=== PATIENT | male | born 1955 | race Caucasian/White ===

== ENCOUNTER 2018-04-11 08:46 | Day surgery (SDC) | payer MEDICARE, OTHER ==
[~2018-04-11 08:46] MED LIST: CYCLOPENTOLATE 1% OPHTH DROPS 2 ML ONE; KETOROLAC 0.45% OPHTH DROPS ONE; PHENYLEPHRINE 2.5% OPHTH 2 ML DROPS ONE; PROPARACAINE 0.5% OPHTH DROPS 15 ML ONE
[2018-04-11] MEDS ORDERED: LACTATED RINGERS 500 ML IV ONE (09:05)
[2018-04-11] MEDS ORDERED: CYCLOPENTOLATE 1% OPHTH DROPS 2 ML RIGHTEYE ONE (09:20)
[2018-04-11] MEDS ORDERED: KETOROLAC 0.45% OPHTH DROPS RIGHTEYE ONE (09:20)
[2018-04-11] MEDS ORDERED: PHENYLEPHRINE 2.5% OPHTH 2 ML DROPS RIGHTEYE ONE (09:20)
[2018-04-11] MEDS ORDERED: PROPARACAINE 0.5% OPHTH DROPS 15 ML RIGHTEYE ONE ×2 (09:20→10:18)
[2018-04-11] MEDS ORDERED: DEXMEDETOMIDINE 400 MCG/100 ML 100 ML IV ONE (09:22)
--- NOTE | 2018-04-11 09:25 | ANESTHESIA ---
Pre-Anesthesia VS, & Labs - Diagnosis Right senile combined cataract - Procedure Right phaco with IOL implant Vital Signs: Temp Pulse Resp BP Pulse Ox 36 C L 64 18 138/93 H 98 04/11/18 09:10 04/11/18 09:10 04/11/18 09:10 04/11/18 09:10 04/11/18 09:10 Height 6 ft 4.5 in Weight (kg) 120 kg Home Medications and Allergies Home Medications: Ambulatory Orders Alprazolam [Xanax] 1 mg PO DAILY 04/10/18 Aspirin [Adult Aspirin] 81 mg PO DAILY 04/10/18 Gabapentin [Neurontin] 300 mg PO TID 04/10/18 Levothyroxine Sodium [Synthroid] 40 mcg PO DAILY 04/10/18 Propranolol [Inderal] 10 mg PO TID 04/10/18 hydroCHLOROthiazide [Hydrochlorothiazide] 25 mg PO DAILY 04/10/18 Alprazolam [Xanax] 1 mg PO DAILY 04/10/18 Aspirin [Adult Aspirin] 81 mg PO DAILY 04/10/18 Gabapentin [Neurontin] 300 mg PO TID 04/10/18 Levothyroxine Sodium [Synthroid] 40 mcg PO DAILY 04/10/18 Propranolol [Inderal] 10 mg PO TID 04/10/18 hydroCHLOROthiazide [Hydrochlorothiazide] 25 mg PO DAILY 04/10/18 Allergies/Adverse Reactions: Allergies Allergy/AdvReac Type Severity Reaction Status Date / Time erythromycin base Allergy Edema Verified 04/11/18 09:42 Anes History & Medical History - Anesthetic History Anesthesia Complications: reports: No previous complications Family history of Anesthesia Complications: Denies Family history of Malignant Hyperthermia: Denies - Medical History Cardiovascular: reports: Hypertension, Atrial fibrillation Pulmonary: reports: None Gastrointestinal: reports: GERD Urinary: reports: None Neuro: reports: None Musculoskeletal: reports: Osteoarthritis Endocrine/Autoimmune: reports: Type 2 diabetes, HyPOthyroidism Blood Disorders: reports: Anemia Skin: reports: None Smoking Status: Former smoker Psychosocial: reports: Other (PTSD) - Surgical History General: Cholecystectomy Orthopedic: Arthroscopic surgery Dermatologic: Skin cancer surgery Exam General: Alert Dental: WNL Mouth Opening: Greater than 4 Fingerbreadths Neck Mobility: Normal Mallampati classification: I Thyromental Distance: greater than 6 cm Respiratory: Lungs clear Cardiovascular: Other (irregular) Neurological: Normal speech Mental/Cognitive Status: Alert/Oriented X3 Cognitive Status: Within normal limits Plan Anesthesia Type: Total IV Consent for Procedure(s) Verified and Reviewed: Yes Code Status: Attempt Resuscitation ASA classification: 2-Mild systemic disease Is this case an emergency?: No
[2018-04-11] MEDS ORDERED: BRIMONIDINE 0.2% OPHTH DROPS 5 ML OPTH ONE (10:17)
[2018-04-11] MEDS ORDERED: CHONDR SULF/HYALURONATE SYRINGE IO ONE (10:17)
[2018-04-11] MEDS ORDERED: TIMOLOL 0.5% OPHTH DROPS OPTH ONE (10:17)
[2018-04-11] MEDS ORDERED: EPINEPHrine 1 MG/ML AMP IVP ONE (10:17)
[2018-04-11] MEDS ORDERED: VANCOMYCIN OPHTHALMI 8MG/0.8ML 8 MG/0.8 ML SYRINGE IO ONE ×2 (10:18)
[2018-04-11] MEDS ORDERED: BSS/LIDOCAINE/EPINEPHRINE 1 ML SYRINGE IO ONE ×2 (10:18)
[2018-04-11] MEDS ORDERED: TRIAMCIN/MOXIFLOX OPHTHALMIC 0.6 ML VIAL IO ONE ×2 (10:19)
[2018-04-11] MEDS ORDERED: fentaNYL 100 MCG/2 ML VIAL IVP ONE (10:26)
[2018-04-11] MEDS ORDERED: PROPOFOL 200 MG/20 ML VIAL IVP ONE (10:26)
[2018-04-11 11:06] VITALS: BP 120/60
--- NOTE | 2018-04-11 13:13 | OPERATIVE REPORT ---
DATE OF SERVICE: 04/11/2018 Physician: Giancarlo Erwin MD PREOPERATIVE DIAGNOSIS: Visually significant cataract, right eye. This was his first cataract surgery. POSTOPERATIVE DIAGNOSIS: Visually significant cataract, right eye. This was his first cataract surgery. NAME OF PROCEDURE: Phacoemulsification of the posterior chamber intraocular lens, implant, right eye. SURGEON: Dr. Giancarlo Erwin ANESTHESIA: General anesthesia with LMA. COMPLICATIONS: None. OPERATIVE INDICATIONS: This is a 63-year-old man with progressive vision loss in the right eye due to 2+ nuclear sclerotic and 2+ cortical cataract. Best corrected visual acuity was 20/25, with glare to 20/60 in the right eye. Indications for surgery are overall decrease in vision, difficulty seeing words on the computer screen, difficulty reading, difficulty seeing words, closed caption or game scores on TV, difficulty seeing street signs, difficulty driving in low light or at night, difficulty driving at night because of headlights from other vehicles, and difficulty with glare or bright lights in any situation. He was consented at length concerning risks and benefits of cataract surgery, after which he expressed a desire to proceed with surgery. OPERATIVE PROCEDURE: The patient was taken into OR #3 and placed under general anesthesia. A surgical timeout was conducted confirming correct patient, correct procedure, and correct surgical site. He was prepped and draped in usual sterile fashion. The eye was entered at the 12 and 9-o'clock positions. Intracameral Shugarcaine was injected into the anterior chamber followed by Viscoat. A continuous-tear curvilinear capsulorrhexis was performed. The nucleus was hydrodissected and phacoemulsified. The cortex was evacuated using automated infusion and aspiration. Provisc was injected capsular bag and an 18.0-diopter intraocular lens was inserted into the bag. Approximately 0.7 mL mixture of triamcinolone, moxifloxacin, and vancomycin was injected subconjunctivally in the superior quadrant for infection and inflammation prophylaxis. I and A was used to evacuate the viscoelastic material. The eye was inflated to physiologic pressure using balanced salt solution and found to be watertight. Patient was extubated and taken from the operating room in good condition and given postoperative instructions. TD: 04/11/2018 10:33 [facility]
== END 2018-04-11 08:47 | disposition home or self-care (01) ==
LOC: SDS 08:46
PROVIDERS: ATTEND Ophthalmology
PROC: 08RJ3JZ Replacement of Right Lens with Synthetic Substitute, Percutaneous Approach (ICD-10-PCS; principal; 2018-04-11 10:00)
DX: H25.811 Combined forms of age-related cataract, right eye (principal); G47.33 Obstructive sleep apnea (adult) (pediatric); F43.10 Post-traumatic stress disorder, unspecified; I48.91 Unspecified atrial fibrillation; I10 Essential (primary) hypertension; E11.9 Type 2 diabetes mellitus without complications; Z87.891 Personal history of nicotine dependence
CPT/HCPCS: 66984; A9270; J3490; V2632

== ENCOUNTER 2018-10-12 17:23 | Emergency (ER) | payer MEDICARE, OTHER ==
[2018-10-12] MEDS ORDERED: METOPROLOL 5 MG/5 ML VIAL IVP STA (18:03)
[2018-10-12] MEDS ORDERED: ALPRAZolam 0.25 MG TABLET PO STA (18:03)
[2018-10-12 18:05] LABS: BASOPHILS # (AUTO) 0.1 10^3/uL (0.0-0.1); BASOPHILS % (AUTO) 1.2 %; EOSINOPHILS # (AUTO) 0.2 10^3/uL (0.0-0.7); EOSINOPHILS % (AUTO) 2.2 %; LYMPHOCYTES % (AUTO) 25.8 %; MEAN CORPUSCULAR HEMOGLOBIN 29.7 pg (27.0-31.0); MEAN CORPUSCULAR HGB CONC 34.1 g/dL (32.0-36.0); MEAN CORPUSCULAR VOLUME 87.2 fL (80.0-94.0); MEAN PLATELET VOLUME 7.5 fL (7.4-11.4); MONOCYTES # (AUTO) 0.6 10^3/uL (0.0-1.0); MONOCYTES % (AUTO) 7.2 %; NEUTROPHILS % (AUTO) 63.6 %; PLT - PLATELET COUNT 260 10^3/uL (130-450); RED BLOOD COUNT 5.04 10^6/uL (4.70-6.10); RED CELL DISTRIBUTION WIDTH 13.5 % (12.0-15.0); WHITE BLOOD COUNT 7.9 x10^3/uL (4.8-10.8)
--- NOTE | 2018-10-12 18:05 | XRAY Report ---
Reason: heart palpations Procedure Date: 10/12/2018 Accession Number: [id number] / [id number] Procedure: XR - Chest 1 View X-Ray CPT Code: 31880 FULL RESULT: EXAM: CHEST RADIOGRAPHY EXAM DATE: 10/12/2018 05:48 PM. CLINICAL HISTORY: Chest pain. Heart palpitations. COMPARISON: None. TECHNIQUE: 1 view. FINDINGS: Lungs/Pleura: No focal opacities evident. No pleural effusion. No pneumothorax. Mediastinum: Within exam limitations, the cardiomediastinal contour is normal. Other: None. IMPRESSION: Normal single view chest. RADIA
--- NOTE | 2018-10-12 18:06 | ED Physician Documentation ---
PD HPI CHEST PAIN - Stated complaint Stated Complaint: AFIB - Chief complaint Chief Complaint: Cardiac - History obtained from History obtained from: Patient, Family - History of Present Illness Timing - onset: Other (For the last several months he has had stomach upset after eating with right upper quadrant pain. It was worse today. Today its associated with anxiety and feeling like his A. alessandro is acting up with shortness of breath. He denies any weight loss. He has been having a lot of various health problems lately regarding his eyes and teeth and he is very anxious. He has a remote cholecystectomy.) Review of Systems Ten Systems: 10 systems reviewed and negative Constitutional: denies: Fever, Chills Nose: denies: Rhinorrhea / runny nose, Congestion Throat: reports: Dental pain / toothache Cardiac: reports: Palpitations. denies: Chest pain / pressure Respiratory: reports: Dyspnea. denies: Cough GI: reports: Abdominal Pain, Nausea. denies: Vomiting, Diarrhea PD PAST MEDICAL HISTORY - Past Medical History Cardiovascular: Hypertension, Atrial fibrillation Respiratory: None Neuro: None Endocrine/Autoimmune: Type 2 diabetes, HyPOthyroidism GI: GERD : None HEENT: None Psych: None Musculoskeletal: Osteoarthritis Derm: None - Past Surgical History General: Cholecystectomy Ortho: Arthroscopic surgery Derm: Skin cancer surgery - Present Medications Home Medications: Ambulatory Orders Medication Instructions Recorded Confirmed Alprazolam [Xanax] 1 mg PO DAILY 04/10/18 04/11/18 Aspirin [Adult Aspirin] 81 mg PO DAILY 04/10/18 04/11/18 Gabapentin [Neurontin] 300 mg PO TID 04/10/18 04/11/18 Propranolol [Inderal] 10 mg PO TID 04/10/18 04/11/18 hydroCHLOROthiazide 25 mg PO DAILY 04/10/18 04/11/18 [Hydrochlorothiazide] Alpha Lipoic Acid 50 mg PO 10/12/18 Cyclobenzaprine [Flexeril] 10 mg PO 10/12/18 Dexlansoprazole [Dexilant] 60 mg PO DAILY #90 10/12/18 Levothyroxine Sodium [Synthroid] 75 mcg 10/12/18 Metoprolol Succinate 25 mg PO DAILY #90 tab.er.24h 10/12/18 Simvastatin 40 mg 10/12/18 traZODone [Desyrel] 50 mg PO HS 10/12/18 10/12/18 - Allergies Allergies/Adverse Reactions: Allergies Allergy/AdvReac Type Severity Reaction Status Date / Time bacitracin Allergy Severe Edema Verified 04/11/18 09:43 erythromycin base Allergy Edema Verified 10/12/18 17:33 - Social History Smoking Status: Former smoker PD ED PE NORMAL - Vitals Vital signs reviewed: Yes - General General: Alert and oriented X 3, No acute distress - HEENT HEENT: PERRL, EOMI, Other (Bloodshot eyes) - Neck Neck: Supple, no meningeal sign, No bony TTP - Cardiac Cardiac: RRR, No murmur, Other (On the monitor he sometimes has rapid A. fib, sometimes in sinus rhythm.) - Respiratory Respiratory: No respiratory distress, Clear bilaterally - Abdomen Abdomen: Normal bowel sounds, Soft, Non tender - Back Back: No CVA TTP, No spinal TTP - Derm Derm: Normal color, Warm and dry - Extremities Extremities: No edema, No calf tenderness / cord - Neuro Neuro: Alert and oriented X 3, Normal speech Results - Vitals Vitals: Vital Signs - 24 hr 10/12/18 10/12/18 10/12/18 17:30 17:59 18:17 Temperature 36.8 C Heart Rate 79 142 H 75 Respiratory 22 20 16 Rate Blood Pressure 206/155 H 188/114 H 167/120 H O2 Saturation 99 100 99 10/12/18 10/12/18 10/12/18 18:20 18:24 18:34 Temperature Heart Rate 72 74 76 Respiratory 16 16 16 Rate Blood Pressure 161/115 H 134/88 H 132/75 H O2 Saturation 99 99 99 10/12/18 10/12/18 18:43 19:19 Temperature Heart Rate 69 69 Respiratory 16 16 Rate Blood Pressure 128/90 H 124/91 H O2 Saturation 100 99 Oxygen O2 Source Room air - EKG (time done) 1730 Rate: Rate (enter#) (74) Rhythm: NSR (with PAcs) [employer]: Normal Intervals: Other (LAFB) QRS: Normal Ischemia: Normal ST segments Computer interpretation: Agree with computer - Labs Labs: Laboratory Tests 10/12/18 10/12/18 10/12/18 17:57 17:57 17:57 WBC 7.9 RBC 5.04 Hgb 15.0 Hct 43.9 MCV 87.2 MCH 29.7 MCHC 34.1 RDW 13.5 Plt Count 260 MPV 7.5 Neut # (Auto) 5.0 Lymph # (Auto) 2.0 White # (Auto) 0.6 Eos # (Auto) 0.2 Baso # (Auto) 0.1 Absolute Nucleated RBC 0.00 Nucleated RBC % 0.0 Sodium 140 Potassium 4.4 Chloride 104 Carbon Dioxide 24 Anion Gap 12.0 BUN 18 Creatinine 1.1 Estimated GFR (MDRD) 67 L Glucose 102 H Calcium 9.7 Total Bilirubin 0.7 AST 23 ALT 20 Alkaline Phosphatase 57 Troponin I < 0.04 Total Protein 8.8 H Albumin 4.7 Globulin 4.1 Albumin/Globulin Ratio 1.1 Lipase 24 TSH Ethyl Alcohol 10/12/18 10/12/18 17:57 17:57 WBC RBC Hgb Hct MCV MCH MCHC RDW Plt Count MPV Neut # (Auto) Lymph # (Auto) White # (Auto) Eos # (Auto) Baso # (Auto) Absolute Nucleated RBC Nucleated RBC % Sodium Potassium Chloride Carbon Dioxide Anion Gap BUN Creatinine Estimated GFR (MDRD) Glucose Calcium Total Bilirubin AST ALT Alkaline Phosphatase Troponin I Total Protein Albumin Globulin Albumin/Globulin Ratio Lipase TSH 4.47 Ethyl Alcohol < 5.0 - Rads (name of study) CT A/P Radiology: EMP read contemporaneously (normal) PD MEDICAL DECISION MAKING - ED course ED course: 63-year-old gentleman with history of remote cholecystectomy and atrial fibril lation presents with progressive right upper quadrant and epigastric pain after eating associated with an increase in atrial fibrillation symptoms. On examination here he was in and out of atrial fibrillation but after the administration of a small dose of IV metoprolol he was basically 99% in sinus rhythm this made him feel much better. His CT was negative and given that he is status post cholecystectomy I suspect gastritis or ulcer is the cause of his abdominal symptoms. Of note he had an upper endoscopy done may be 6 or 9 months ago at another ability that he says was notable for an erosion. He was on Prilosec but that was not covered by the [place] base so he stopped taking it and is not on a PPI currently. I looked up the [employer] formulary, it does look like he can get home delivery of Dexilant through [facility]. Since he will have to mail order that I advised that he take Prilosec of [id number] until he gets that. Departure - Departure Disposition: Home, Self Care Clinical Impression: Atrial fibrillation Qualifiers: Atrial fibrillation type: paroxysmal Qualified Code(s): I48.0 - Paroxysmal atrial fibrillation Gastritis Qualifiers: Gastritis type: superficial Chronicity: acute Gastritis bleeding: without bleeding Qualified Code(s): K29.00 - Acute gastritis without bleeding Condition: Good Record reviewed to determine appropriate education?: Yes Instructions: Atrial Fibrillation Dc, ED Gastritis Prescriptions: Dexlansoprazole [Dexilant] 60 mg PO DAILY #90 cap. Metoprolol Succinate 25 mg PO DAILY #90 tab.er.24h Comments: Take Prilosec which is available [id number] once a day, 20 mg until you are able to obtain the Dexilant prescription through [facility] home delivery. Return for new or worsening symptoms. Follow-up with your doctor on Sunday with a copy of these instructions. For her please note that your CBC, CMP, troponin and CAT scan of your belly were normal.
[2018-10-12] MEDS ORDERED: IOVERSOL 320 100 ML VIAL IVP ONE ×2 (18:18→19:16)
[2018-10-12 18:19] LABS: ALBUMIN 4.7 g/dL (3.2-5.5); ALBUMIN/GLOBULIN RATIO 1.1 (1.0-2.2); BILIRUBIN,TOTAL 0.7 mg/dL (0.2-1.0); CALCIUM 9.7 mg/dL (8.5-10.3); CREATININE 1.1 mg/dL (0.6-1.2); TOTAL PROTEIN 8.8 g/dL (6.7-8.2)
--- NOTE | 2018-10-12 19:43 | CT Report ---
Reason: IV only, RUQ pain, post prandial, no gallbaldder Procedure Date: 10/12/2018 Accession Number: [id number] / [id number] Procedure: CT - Abdomen/Pelvis W CPT Code: FULL RESULT: EXAM: CT ABDOMEN AND PELVIS EXAM DATE: 10/12/2018 07:14 PM. CLINICAL HISTORY: Right upper quadrant pain, postprandial, no gallbladder. COMPARISONS: CHEST 1 VIEW 10/12/2018 5:37 PM. TECHNIQUE: Routine helical CT imaging was performed through the abdomen and pelvis. IV contrast: 50 mL Optiray-320. Enteric contrast: No. Reconstructions: Coronal and sagittal. IV catheter leaked. Patient received about 40-50 mL Optiray-320 IV contrast. In accordance with CT protocol optimization, one or more of the following dose reduction techniques were utilized for this exam: automated exposure control, adjustment of mA and/or KV based on patient size, or use of iterative reconstructive technique. FINDINGS: Lung bases: Calcified pulmonary nodule seen anteriorly in the right lower lobe. Liver: Unremarkable. Gallbladder: Surgically removed. Bile ducts: Unremarkable. Pancreas: Unremarkable. Spleen: Unremarkable. Adrenals: Unremarkable. Kidneys: A couple of right renal cysts, the largest measuring 5.2 cm, Hounsfield unit of 8. No hydronephrosis. Bowel: No acute bowel findings are seen. The appendix is not definitely seen. No secondary signs for acute appendicitis. No free fluid or free air. Pelvis: The bladder and remaining pelvic organs appear unremarkable. Vasculature: No acute findings. Bones: No acute bone findings. IMPRESSION: 1. No bile duct dilatation status post cholecystectomy. 2. The appendix is not seen. No secondary signs for acute appendicitis. 3. No acute findings are seen. 4. See above. RADIA
[2018-10-12] MEDS ORDERED: PANTOPRAZOLE 40 MG VIAL IVP STA (19:50)
[2018-10-12 19:59] VITALS: BP 119/83
== END 2018-10-12 20:07 | disposition home or self-care (01) ==
LOC: ED 17:23
DX: K29.00 Acute gastritis without bleeding (principal); I48.0 Paroxysmal atrial fibrillation; I49.1 Atrial premature depolarization; I44.4 Left anterior fascicular block; F41.9 Anxiety disorder, unspecified; I10 Essential (primary) hypertension; E11.9 Type 2 diabetes mellitus without complications; Z90.49 Acquired absence of other specified parts of digestive tract; Z79.82 Long term (current) use of aspirin; Z87.891 Personal history of nicotine dependence
CPT/HCPCS: 36415; 71045; 74177; 83690; 84484; 93005; 96374; 96375; 99284; A9270; Q9967; 80053; 80320; 84443; 85025

== ENCOUNTER 2019-10-16 11:37 | Outpatient (CLI) | payer MEDICARE, OTHER ==
--- NOTE | 2019-10-16 13:22 | CT Report ---
Reason: CHRONIC RHINITIS Procedure Date: 10/16/2019 Accession Number: [id number] / [id number] Procedure: CT - Sinuses CPT Code: Final Report FULL RESULT: PROCEDURE: Sinuses INDICATIONS: CHRONIC RHINITIS TECHNIQUE: Noncontrast 3.0 mm axial images acquired from the frontal sinuses to the mid-sella, with coronal and sagittal reformats. For radiation dose reduction, the following was used: automated exposure control, adjustment of mA and/or kV according to patient size. COMPARISON: None. FINDINGS: Image quality: Excellent. Maxillary Sinuses: No bony remodeling or destruction. Mild to moderate mucosal thickening is seen within the inferior maxillary sinuses. Frothy appearing material can be seen anteriorly and on the left, as on series 5 image 18. Ethmoid Air Cells: There is at least moderate mucosal thickening seen within the ethmoid air cells. The ethmoid air cell septations are demineralized. Sphenoid Sinuses: No bony remodeling or destruction. There is minimal to mild right sphenoid sinus mucosal thickening. Frontal Sinuses: No bony remodeling or destruction. Mild to moderate mucosal thickening is seen within the inferior frontal sinuses. Ostiomeatal Complexes: Ostiomeatal complexes are constitutionally narrowed, with infraorbital septations. The ostomy complexes are further prominently narrowed by soft tissue thickening. Miscellaneous: Visualized intra-orbital contents are normal. No kirill bullosa. There is mild leftward nasal septal deviation. IMPRESSION: Paranasal sinus disease is seen, which is most prominent within the ethmoid air cells. The demineralization of the ethmoid air cell septations is consistent with chronic sinusitis. Frothy study appearing material can be seen within the anterior left maxillary sinus, which is nonspecific, yet can be seen in patients with acute sinusitis. The ostiomeatal complexes are constitutionally narrowed and are further prominently narrowed by soft tissue thickening. Mild leftward nasal septal deviation. Reviewed by: Vikas Adam MD on 10/16/2019 12:20 PM MIGUEL Approved by: Vikas Adam MD on 10/16/2019 12:20 PM MIGUEL Station ID: [id number]
== END 2019-10-16 11:38 | disposition home or self-care (01) ==
LOC: DI 11:37
PROVIDERS: ATTEND Otolaryngology
DX: J32.2 Chronic ethmoidal sinusitis (principal); J34.89 Other specified disorders of nose and nasal sinuses
CPT/HCPCS: 70486

== ENCOUNTER 2020-05-26 09:03 | Outpatient (CLI) | payer MEDICARE, OTHER ==
[2020-05-26 10:10] VITALS: BP 142/80
--- NOTE | 2020-05-26 10:10 | SLEEP CARE CONSULTATION ---
Information from patient questionnaire entered by Natasha Wright. I have reviewed and concur with the information entered by Natasha Wright. This document represents the service I personally performed and the decisions made by me, Cat Arvizu ARNP. History of Present Illness Service Date and Time: 05/26/2020 0903 Reason for Visit: New patient, Previously diagnosed sleep apnea (Intolerant of CPAP) Chief Complaint: reports: Insomnia, Snoring, Frequent awakenings at night Date of Onset: 20 years Usual bedtime: 11 pm Time it takes to fall asleep: 1 hour Snores at night: Yes (has improved) Observed to quit breathing while asleep: No Sleeps alone due to snoring: Yes ( sleeps in seperate room) Number of times waking at night: 3-4 Reasons for waking at night: reports: Bathroom Toss, Turn, or Twitch while sleeping: Yes Recalls having dreams: Yes Usually gets out of bed at: 6:30 am Feels refreshed in the morning: Yes Morning headache: No Sleepy or fatigued during the day: Yes Ever fallen asleep while driving: No Takes day naps: No Dreams during day naps: No Prior sleep studies: Yes Year and Where: 1997 and 2011 Additional HPI information: I had the pleasure of seeing WILY PILLAI today regarding the possibility of him having a sleep disorder. He was diagnosed with severe obstructive sleep apnea with an AHI of 78.3 in 2011. He could not tolerate wearing the CPAP mask and discontinued therapy. His current complaints are insomnia, snoring and frequent night awakenings. He has been working with an ENT due to a sinus infection recently and has he has a history of limited air movement through his left nostril. The ENT suggested he seek reevaluation and possible treatment again. He states he has night terrors and some PTSD that gives him anxiety when trying to wear the CPAP mask. He has lost 47 pounds in 90 days two years ago and has not regained significant amount back. - Parasomnia Symptoms Ever been unable to move upon waking from sleep: No Walks in sleep: No Talks in sleep: Yes Ever acted out dreams in sleep: Yes (has history of PTSD) Ever felt weak in the knees when startled or emotional: No Bothered by creepy, crawly, restless sensations in legs: No Problems with memory or concentration: No Subjective Initial [place] Sleepiness Scale score: 2 (in 2020) Past Medical History Past Medical History: reports: Hypertension, Claustrophobia, Diabetes (A1c 6, no on medications), Arthritis, Arrythmia (Atrial Fibrillation in Mar 2020, had an ablation, on Eliquis), Hypothyroidism, Fibromyalgia, Anemia, Anxiety, Mood disorder (PTSD), GERD, Other (PTSD, night terror) Social History The patient's occupation is a RETIRED. Patient is and lives in [place]. Have you smoked in the past 12 months: No Cigarettes per day (20/pack): 10 Quit date: 1974 Alcohol use: No Caffeine use: Yes Caffeine amount and frequency: 3 cups Family History Family history of sleep disordered breathing: Yes Family Hx Sleep Apnea: Sibling: Snoring, Sleep apnea - Treated Allergies and Home Medications Drug allergies reviewed: Yes (bacitracin, erthromycin) Home medication list reviewed: Yes Allergy and home medication list: Trazodone 100 mg Simvastatin Alprazolam 0.5 mg Synthroid 75 mcg Pantoprazole 8 mg Eliquis 10 mg Clonazepam 1 mg Gabapentin 900 mg Review of Systems Weight loss over past 5 years: 48 Cardiovascular: reports: high blood pressure, other (A-Fib) Gastrointestinal: reports: nausea, vomitting, abdominal pain Urinary: reports: frequency Neurological: reports: other (Ecential Tremor) Psychiatric: reports: other (PTSD) Ear/Nose/Throat: reports: nasal congestion, sinus problems, tonsillectomy, wisdom teeth removed Endocrine: reports: thyroid disease, increased urination Musculoskeletal: reports: joint pain, back pain, joint swelling, muscle pain or cramping Immunologic: reports: sneezing Physical Exam Blood Pressure: 142/80 Cuff size: long Heart Rate: 61 O2 Saturation: 98 Height: 6 ft 4 in Weight: 274 lb Body Mass Index: 33.3 BMI Classification: Obese Nostrils: patent to airflow Septum: midline Mouth and throat: narrow oropharynx Uvula visualization: 25% Mallampati Class III Tongue: enlarged in size with teeth tatum on lateral edges Tonsils: absent bilaterally Chin and jaw: normal size and position Neck: normal w/o lymphadenopathy or thyromegaly Heart: regular rate and rhythm Lungs: clear bilaterally Impression and Plan 1. 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 I reviewed with the patient that a narrow oropharynx and obesity are common predisposing factors for obstructive sleep apnea-hypopnea syndrome. I advised the patient that we would need to re- verify his diagnosis and severity to be able to discuss treatments. I then recommended proceeding to polysomnography to confirm the diagnosis and to assess severity. Patient voiced that he would prefer to do a home study test if possible. This is up to the insurance but since he has had a previous positive test in lab I do not think this will be a problem. The pathophysiology of obstructive sleep apnea-hypopnea syndrome was discussed with the patient and health risks of cardiovascular and cerebrovascular disease if not treated. Patient agreed to plan. * Schedule polysomnography +- manual CPAP titration study and return in 1-2 wee ks after the study to discuss result and initiate therapy. * Avoid long distance driving or driving when feeling sleepy. * Avoid sedative and muscle relaxant around bedtime. * Continue to try to lose weight. * Review instructions provided by trained office staff on how to prepare for the sleep study. * Return for follow-up after sleep study completed. Counseling Topics: Weight loss health impact Visit Type: In Office Time Spent with Patient (minutes): 38 Provider Statement: I spent 100% of the Face to Face Visit with the patient with greater than 50% spent counseling the patient and coordination of care.
== END 2020-05-26 09:04 | disposition home or self-care (01) ==
LOC: SC 09:03
PROVIDERS: ATTEND Nurse Practitioner Family
DX: G47.33 Obstructive sleep apnea (adult) (pediatric) (principal); G47.00 Insomnia, unspecified; R06.83 Snoring; E66.9 Obesity, unspecified; G47.8 Other sleep disorders; I10 Essential (primary) hypertension; Z68.33 Body mass index [BMI] 33.0-33.9, adult
CPT/HCPCS: 99203; G0463; 99212

== ENCOUNTER 2020-06-08 09:54 | Outpatient (CLI) | payer MEDICARE, OTHER | END 2020-06-08 09:55 | disposition home or self-care (01) | LOC: SC 09:54 | PROVIDERS: ATTEND Nurse Practitioner Family | DX: G47.33 Obstructive sleep apnea (adult) (pediatric) (principal); E66.9 Obesity, unspecified; Z68.33 Body mass index [BMI] 33.0-33.9, adult | CPT/HCPCS: G0399 ×2; 95806 ==

== ENCOUNTER 2020-06-22 09:18 | Outpatient (CLI) | payer MEDICARE, OTHER ==
--- NOTE | 2020-06-22 10:01 | SLEEP CARE CONSULTATION ---
Information from patient questionnaire entered by Natasha Wright. I have reviewed and concur with the information entered by Natasha Wright. This document represents the service I personally performed and the decisions made by , Cat Arvizu ARNP. History of Present Illness Service Date and Time: 06/22/2020917 Initial [place] Sleepiness Scale score: 2 (in 2020) Current [place] Sleepiness Scale score: 8 Additional HPI information: WILY PILLAI returns for follow up and results of the recently performed home sleep study. I explained the pathophysiology behind obstructive sleep apnea. We then spent quite a bit of time discussing different treatment options. For mild obstructive sleep apnea, surgery and oral appliance are alternatives to nasal CPAP therapy but in moderate or severe cases, nasal CPAP is the most effective and reliable treatment. Because apnea is primarily in supine position, then positional management therapy could be effective. Methods discussed such as positioning with pillows, using a T-shirt with tennis balls in the back, and shown commercial products that have a pillow format on back to prevent supine sleep. I reviewed the impact of weight changes on sleep apnea and strongly recommended losing weight. After some discussion, the patient opted to go with the nasal CPAP therapy. Nasal autoCPAP set at 4-15 cmH20 will be ordered with rationale explained. A manual titration study will be ordered if unable to find optimal pressure with office adjustments. I explained how CPAP machine works with sample devices [employer] tation and [employer] [id number] and what to expect when using the machine. Using CPAP every night in order to get used to it was emphasized. Patient advised to put CPAP mask on before getting into bed so as not to fall asleep without CPAP. To assist acclimation to CPAP use, it could also be used for a short time during day while reading or watching TV. The patient was instructed to call the CPAP supplier to discuss any mechanical problem that may occur. If the mask given is uncomfortable or is difficult to keep on through the night even with adjustment, contact the CPAP supplier as many will replace with another mask style if notified before 30 days. If snoring or perceives is not getting enough air or too much air from the machine, notify this office. [facility] patient education PAP tips reviewed and given to patient. Patient counseled not drink alcohol less than 4 hours before bedtime as it can increase snoring and apnea. Patient was cautioned about risks of drowsy driving until sleepiness symptoms resolve. Sleep Study - Results Type of Sleep Study: Home sleep study Prior sleep studies: Yes Year and Where: 1997 and 2011 Polysomnography/Home Sleep Study results: Physician Impression: The quality of the study is fair due to unreliable pulse oximetry signal. The length of the study is adequate (> 240 minutes). Please also see the tabulated and graphic data. 1. Obstructive Sleep Apnea-Hypopnea (ICD-10 G47.33), severe, with an AHI of 50.7 /hr and nakia SaO2 of 83%. During the study, the patient had 321 apneas (321 obstructive, 0 central, 0 mixed) and 9 hypopneas. The longest episode lasted 114.5 seconds. The patient did not sleep supine during this study (supine AHI was 0.0 and non-supine, 50.73). 2. Hypoxemia (ICD-10 R09.02), mild, with the lowest oxygen saturation of 83 % and 116.4 minutes with SaO2 under 90%. Baseline oxygen saturation was normal (Average oxygen saturation was 93%). Allergies and Home Medications Home medication list reviewed: Yes (no changes) Review of Systems Review of systems same as previous: Yes (no changes) Physical Exam Heart Rate: 68 O2 Saturation: 90 Height: 6 ft 4 in Weight: 270 lb Body Mass Index: 32.8 BMI Classification: Obese Impression and Plan 1. Obstructive Sleep Apnea-Hypopnea Syndrome, severe, with lowest oxygen saturation of 83%. Obviously this is the cause of the patients symptoms of unrefreshed sleep, and excessive daytime sleepiness. Positive pressure therapy could benefit hypertension, arrhythmia, diabetes, GERD, anxiety and mood disorder (PTSD). As mentioned above, the patient will be started on nasal autoCPAP therapy with pressure set at 4-15 cmH2O. Compliance guidelines also reviewed. A copy of compliance guidelines will be given for reference at check out. * Start Nasal auto CPAP therapy, pressure at 4-15 cm H2O using old ResMed machine * Avoid alcohol consumption near bedtime. * Avoid supine sleep until using CPAP. * The patient is again cautioned about driving until sleepiness completely resolves. * Return one month after CPAP started. I will assess response to therapy and compliance at that time. Visit Type: In Office Time Spent with Patient (minutes): 21 Provider Statement: I spent 100% of the Face to Face Visit with the patient with greater than 50% spent counseling the patient and coordination of care.
== END 2020-06-22 09:19 | disposition home or self-care (01) ==
LOC: SC 09:18
PROVIDERS: ATTEND Nurse Practitioner Family
DX: G47.33 Obstructive sleep apnea (adult) (pediatric) (principal); E66.9 Obesity, unspecified; Z68.32 Body mass index [BMI] 32.0-32.9, adult
CPT/HCPCS: 99213; G0463; 99212

== ENCOUNTER 2020-08-18 10:11 | Outpatient (CLI) | payer MEDICARE, OTHER ==
--- NOTE | 2020-08-18 10:29 | SLEEP CARE CONSULTATION ---
Information from patient questionnaire entered by Natasha Wright. I have reviewed and concur with the information entered by Natasha Wright. This document represents the service I personally performed and the decisions made by , Cat Arvizu ARNP. History of Present Illness Service Date and Time: 08/18/2020 1000 Previous diagnosis: Severe, Obstructive Sleep Apnea-Hypopnea Syndrome AHI: 50.7 (in 2020)(78.3 in 2011) Reason for follow up: other (2 month) Equipment type: CPAP Equipment obtained from: [employer] (not getting supplies, using ResMed S9) Mask style: Nasal pillows Mask brand: [employer]med Backup mask available: Yes (old masks) Last cushion change: 1 week Prior sleep studies: Yes Year and Where: 2020 - [facility]; 1997 and 2011 Type of Sleep Study: Home sleep study HPI additional information: WILY PILLAI was diagnosed to have severe, AHI 50.7, obstructive sleep apnea- hypopnea syndrome and returned today for CPAP therapy two month, first compliance follow-up. CPAP Compliance Data - Data Reviewed with Patient Average duration of nightly device use: 4 hr 46 in Compliance rate %: 39 Current pressure setting (cmH2O): 4-15 (median 6.3, avg 8.2, max 9.1) Average residual AHI: 1.3 Subjective Missed days of use due to: reports: illness, other (having to sleep on wrong side so unable to use machine) Patient concerns: reports: nasal congestion, other (ear problem, tinnitus). denies: aerophagia, mask discomfort, air blowing in eyes, mask leak noise, condensation in mask/hose, dry mouth, nose, throat, epistaxis Observed to snore while using device: No Current pressure setting perceived as: comfortable On therapy, patient: reports: sleeping better, more rested overall. denies: awakening more refreshed, being more awake and alert during the day, drowsiness while driving Initial [place] Sleepiness Scale score: 2 (in 2020) Current [place] Sleepiness Scale score: 3 Allergies and Home Medications Home medication list reviewed: Yes (no new meds) Review of Systems Review of systems same as previous: No (right knee monreal's cyst rupture) Physical Exam Heart Rate: 67 O2 Saturation: 99 Height: 6 ft 4 in Weight: 273 lb Body Mass Index: 33.2 BMI Classification: Obese Impression and Plan 1. Obstructive Sleep Apnea-Hypopnea Syndrome, severe, with poor treatment compliance and good apnea control. On CPAP therapy, the patient has better sleep quality and is more rested overall. The patients pressure will be changed to autoCPAP 6-8 cmH20. Patient advised to contact me if pressure change is uncomfortable so that it can be adjusted. Goals for apnea control discussed. He has not been able to use the machine because he had a monreal's cyst rupture and was in a knee brace. He was unable to sleep on the right side for sleeping. He cannot use the CPAP because his nose closes off and he cannot breathe. He has resumed using his CPAP after the knee brace came off a couple of days ago. He had a chronic sinus infection which has damaged his ears and he has tinnitus. This can be made worse with the CPAP pressure, if it is too high. We will try to adjust as needed if this becomes more of an issue again. He is to follow up with the DME about how he is to order supplies. He voiced understanding of discussion during the visit and agrees to plan of care. Patient's apnea severity and rationale for treatment to reduce apnea, improve sleep quality and reduce cardiovascular and cerebrovascular events was reviewed. I also reviewed the benefit of consistent device use of CPAP for hypertension, arrhythmia, diabetes, gastric reflux, anxiety, and mood disorder (PTSD). * Change auto CPAP pressure to 6-8 cmH2O * Notify me if snoring with mask or feeling that the pressure is too much or too little * Attempt to lose weight * Call this office if any problems using CPAP * Return for follow up in 1-2 months, or sooner if concerns arise Counseling Topics: Spare mask, Weight loss health impact Visit Type: In Office Time Spent with Patient (minutes): 22 Provider Statement: I spent 100% of the Face to Face Visit with the patient with greater than 50% spent counseling the patient and coordination of care.
== END 2020-08-18 10:12 | disposition home or self-care (01) ==
LOC: SC 10:11
PROVIDERS: ATTEND Nurse Practitioner Family
DX: G47.33 Obstructive sleep apnea (adult) (pediatric) (principal); E66.9 Obesity, unspecified; Z68.33 Body mass index [BMI] 33.0-33.9, adult
CPT/HCPCS: 99213; G0463; 99212

== ENCOUNTER 2020-11-30 09:54 | Outpatient (CLI) | payer MEDICARE, OTHER ==
--- NOTE | 2020-11-30 10:34 | SLEEP CARE CONSULTATION ---
Information from patient questionnaire entered by Natasha Wright. I have reviewed and concur with the information entered by Natasha Wright. This document represents the service I personally performed and the decisions made by , Cat Arvizu ARNP. History of Present Illness Service Date and Time: 11/30/2020 0954 Previous diagnosis: Severe, Obstructive Sleep Apnea-Hypopnea Syndrome AHI: 50.7 (in 2020) Reason for follow up: three month (with pressure change) Equipment type: CPAP Equipment obtained from: [employer] (has not gotten any supplies yet; not ordered) Mask style: Nasal pillows Backup mask available: No (will keep old mask when replaced) Last cushion change: 2 weeks ago Prior sleep studies: Yes Year and Where: 2020 - [facility]; 1997 and 2011 Type of Sleep Study: Home sleep study HPI additional information: WILY PILLAI was diagnosed to have severe, AHI 50.7, obstructive sleep apnea- hypopnea syndrome and returned today for CPAP therapy three month with pressure change follow-up. CPAP Compliance Data - Data Reviewed with Patient Average duration of nightly device use: 5 hours 48 minutes Compliance rate %: 27 Current pressure setting (cmH2O): 6-8 Average residual AHI: 1.0 Central apnea: 0.3 Obstructive apnea: 0.4 Subjective Missed days of use due to: reports: illness, other (surgery) Patient concerns: reports: nasal congestion, other (unable to use since surgery, hard to say why it is bothering him). denies: aerophagia, mask discomfort, air blowing in eyes, mask leak noise, condensation in mask/hose, dry mouth, nose, throat, epistaxis Observed to snore while using device: No Current pressure setting perceived as: comfortable On therapy, patient: reports: sleeping better, awakening more refreshed, being more awake and alert during the day, more rested overall. denies: drowsiness while driving Initial [place] Sleepiness Scale score: 2 (in 2020) Current [place] Sleepiness Scale score: 5 Allergies and Home Medications Home medication list reviewed: Yes (no changes) Review of Systems Review of systems same as previous: No (Hiatal hernia (Nissin precedure) ) Physical Exam Heart Rate: 53 O2 Saturation: 98 Height: 6 ft 4 in Weight: 254 lb Body Mass Index: 30.9 BMI Classification: Obese Impression and Plan 1. Obstructive Sleep Apnea-Hypopnea Syndrome, severe, with poor treatment compliance and good apnea control. On CPAP therapy, the patient has better sleep quality and is more rested overall. Patient has difficulty with nasal congestion and his nostrils will also make it difficult to breathe through his mask. He does use an OTC nasal spray as well as Flonase to help with his congestion. He states the nasal congestion is due to his seasonal allergies. I advised him that if he is not on an antihistamine that this might be helpful and that he should check with his PCP. Patient also had a Keli procedure to repair a hiatal hernia. Postop pain was higher than he expected and he had difficulty being able to wear his CPAP device. Patient also had difficulty when at home because he could not get comfortable with the mask. He had to sleep on his back and for some reason he was still not able to tolerate the CPAP mask on. He has been trying to wear it more in the last couple of weeks which has brought up his compliance to 27%. Patient states sometimes he does forget to put the mask on when coming back from the bathroom at night. To prevent falling asleep without CPAP after using the bathroom, patient can either unhook the hose and keep mask on or put mask on pillow. Compliance guidelines reviewed for insurance coverage. Patient was counseled on the difference between meeting compliance and optimal use of CPAP. Optimal use of CPAP is use of CPAP with all sleep to obtain maximum benefit of treatment. Patient is encouraged to use CPAP with all sleep. We will need to recheck compliance in 1-2 months. Patient's apnea severity and rationale for treatment to reduce apnea, improve sleep quality and reduce cardiovascular and cerebrovascular events was reviewed. I also reviewed the benefit of consistent device use of CPAP for hypertension, arrhythmia, diabetes, gastric reflux, anxiety, and mood disorder. Patient was advised to try to lose weight as this will benefit his overall health. * Continue autoCPAP pressure at 6-8 cmH2O * Notify me if snoring with mask or feeling that the pressure is too much or too little * Attempt to lose weight * Call this office if any problems using CPAP * Return for follow up in 1-2 months, or sooner if concerns arise Counseling Topics: Spare mask, Weight loss health impact Visit Type: In Office Time Spent with Patient (minutes): 26 Provider Statement: I spent 100% of the Face to Face Visit with the patient with greater than 50% spent counseling the patient and coordination of care.
== END 2020-11-30 09:55 | disposition home or self-care (01) ==
LOC: SC 09:54
PROVIDERS: ATTEND Nurse Practitioner Family
DX: G47.33 Obstructive sleep apnea (adult) (pediatric) (principal); E66.9 Obesity, unspecified; Z68.30 Body mass index [BMI] 30.0-30.9, adult
CPT/HCPCS: 99213; G0463; 99212

== ENCOUNTER 2021-02-01 09:53 | Outpatient (CLI) | payer MEDICARE, OTHER ==
--- NOTE | 2021-02-01 10:31 | SLEEP CARE CONSULTATION ---
Information from patient questionnaire entered by Anna Sutton. I have reviewed and concur with the information entered by Anna Sutton. This document represents the service I personally performed and the decisions made by , Cat Arvizu ARNP. History of Present Illness Service Date and Time: 02/01/2021 0953 Previous diagnosis: Severe, Obstructive Sleep Apnea-Hypopnea Syndrome AHI: 50.7 Reason for follow up: other (2 month) Equipment type: CPAP Equipment obtained from: [employer] (has enough supplies, no further shipments right now) Mask style: Nasal pillows Backup mask available: Yes (old mask) Last cushion change: 1 week Prior sleep studies: Yes Year and Where: 2020 - [facility]; 1997 and 2011 Type of Sleep Study: Home sleep study HPI additional information: WILY PILLAI was diagnosed to have severe, AHI 50.7, obstructive sleep apnea- hypopnea syndrome and returned today for CPAP therapy 2 month follow-up. Sleep Study - Results Type of Sleep Study: Home sleep study Prior sleep studies: Yes Year and Where: 2020 - [facility]; 1997 and 2011 CPAP Compliance Data - Data Reviewed with Patient Average duration of nightly device use: 5 HOURS 36 MINUTES Compliance rate %: 82 Current pressure setting (cmH2O): 6-8 Average residual AHI: 0.8 Central apnea: .2 Obstructive apnea: .3 Hypopnea: .2 Subjective Patient concerns: reports: nasal congestion ("addicted" to nose spray and uses it every night with good results). denies: aerophagia, mask discomfort, air blowing in eyes, mask leak noise, condensation in mask/hose, dry mouth, nose, throat, epistaxis, other Observed to snore while using device: No Current pressure setting perceived as: comfortable On therapy, patient: reports: sleeping better, awakening more refreshed, being more awake and alert during the day, more rested overall. denies: drowsiness while driving Initial [place] Sleepiness Scale score: 2 (in 2020) Current [place] Sleepiness Scale score: 2 Allergies and Home Medications Home medication list reviewed: Yes (no changes) Review of Systems Review of systems same as previous: Yes (Keli procedure in August 2020) Physical Exam Heart Rate: 62 O2 Saturation: 98 Height: 6 ft 4 in Weight: 262 lb Body Mass Index: 31.8 BMI Classification: Obese Impression and Plan 1. Obstructive Sleep Apnea-Hypopnea Syndrome, severe, with good treatment compliance and excellent apnea control. On CPAP therapy, the patient has better sleep quality and is more rested overall. Patient has been having more nightmares so he feels he must be getting to REM sleep. Patient is satisfied with current therapy. He feels the pressures are comfortable at current settings and has significant improvement of his apneas. Patient was encouraged to lose weight as this will help reduce his apneas as well as improve his overall health. Patient's apnea severity and rationale for treatment to reduce apnea, improve sleep quality and reduce cardiovascular and cerebrovascular events was reviewed. I also reviewed the benefit of consistent device use of CPAP for hypertension, arrhythmia, diabetes, gastric reflux, anxiety and mood disorder. * Continue auto CPAP pressure at 6-8 cmH2O * Notify me if snoring with mask or feeling that the pressure is too much or too little * Attempt to lose weight * Call this office if any problems using CPAP * Return for follow up in 6 months, or sooner if concerns arise Counseling Topics: Spare mask, Weight loss health impact Visit Type: In Office Time Spent with Patient (minutes): 20 Provider Statement: I spent 100% of the Face to Face Visit with the patient with greater than 50% spent counseling the patient and coordination of care.
== END 2021-02-01 09:54 | disposition home or self-care (01) ==
LOC: SC 09:53
PROVIDERS: ATTEND Nurse Practitioner Family
DX: G47.33 Obstructive sleep apnea (adult) (pediatric) (principal); E66.9 Obesity, unspecified; Z68.31 Body mass index [BMI] 31.0-31.9, adult
CPT/HCPCS: 99213; G0463; 99212

== ENCOUNTER 2022-03-16 08:46 | Outpatient (CLI) | payer MEDICARE, OTHER ==
--- NOTE | 2022-03-16 09:22 | SLEEP CARE CONSULTATION ---
Information from patient questionnaire entered by Yue Hartman. I have reviewed and concur with the information entered by Yue Hartman. This document represents the service I personally performed and the decisions made by , Cat Arvizu ARNP. History of Present Illness Service Date and Time: 03/16/2022 0846 Previous diagnosis: Severe, Obstructive Sleep Apnea-Hypopnea Syndrome AHI: 50.7 Reason for follow up: first compliance after device update (SET UP 01/16/2022) Equipment type: CPAP (RESMED) Equipment obtained from: [employer] (getting supplies) Mask style: Nasal pillows Backup mask available: Yes (old mask) Last cushion change: rotating with 4 masks daily Prior sleep studies: Yes Year and Where: 2020 - [facility]; 1997 and 2011 Type of Sleep Study: Home sleep study HPI additional information: WILY PILLAI was diagnosed to have severe, AHI 50.7, obstructive sleep apnea- hypopnea syndrome and returned today for CPAP therapy first compliance after updating device follow-up. Sleep Study - Results Type of Sleep Study: Home sleep study Prior sleep studies: Yes Year and Where: 2020 - [facility]; 1997 and 2011 CPAP Compliance Data - Data Reviewed with Patient Average duration of nightly device use: 6 HRS, 6 MIN Compliance rate %: 90 (01/14/2022-03/14/2022; 57/60 days used) Current pressure setting (cmH2O): 6-8 Average residual AHI: 0.7 Central apnea: 0.2 Obstructive apnea: 0.3 Average large leak: 0.8 lpm Subjective Missed days of use due to: reports: other (power outage) Patient concerns: reports: condensation in mask/hose (occasionally in mask). denies: aerophagia, mask discomfort, air blowing in eyes, mask leak noise, nasal congestion, dry mouth, nose, throat, epistaxis Observed to snore while using device: No Current pressure setting perceived as: comfortable On therapy, patient: reports: sleeping better, awakening more refreshed, being more awake and alert during the day, more rested overall. denies: drowsiness while driving Initial [place] Sleepiness Scale score: 2 (in 2020) Current [place] Sleepiness Scale score: 3 (03/16/2022) Allergies and Home Medications Drug allergies reviewed: Yes (bacitracin, erythromycin base) Home medication list reviewed: Yes (no changes) Review of Systems Review of systems same as previous: Yes (no changes) Physical Exam Vital signs obtained and entered by: YUE Marc MA Blood Pressure: 124/80 (LEFT ARM) Cuff size: regular Heart Rate: 60 O2 Saturation: 90 Height: 6 ft 3 in Weight: 265 lb 12.8 oz Body Mass Index: 33.2 BMI Classification: Obese Impression and Plan 1. Obstructive Sleep Apnea-Hypopnea Syndrome, severe, with good treatment compliance and good apnea control. On CPAP therapy, the patient has better sleep quality and is more rested overall. Patient has significant improvement of their sleep apnea and are satisfied with current CPAP therapy. Patient states he gets some condensation in mask. He keeps his room cool and he does not like warm air on his face. His tube temperature is at 72 degrees and humidity at 2. He does not get condensation in the tubing, just the mask at his mouth/outside on skin. I think this is just from his own breath reacting with cold air. He voiced understanding. Patient denies problems with oral dryness, nasal congestion, epistaxis, skin irritation or aerophagia. Patient's apnea severity and rationale for treatment to reduce apnea, improve sleep quality and reduce cardiovascular and cerebrovascular events was reviewed. I also reviewed the benefit of co nsistent device use of CPAP for hypertension, arrhythmia, diabetes, gastric reflux, anxiety and mood disorder. 2. Obesity, unspecified. Currently patients BMI is 33.2. Obesity increases the risk of apnea, CPAP pressure requirements and overall health risks especially cardiovascular and diabetes. Thus patient is advised to lose weight. * Continue auto CPAP pressure at 6-8 cmH2O * Notify me if snoring with mask or feeling that the pressure is too much or too little * Attempt to lose weight * Call this office if any problems using CPAP * Return for follow up in 1 year, or sooner if concerns arise Counseling Topics: Spare mask, Weight loss health impact Visit Type: In Office Time Spent with Patient (minutes): 23 Provider Statement: I spent 100% of the Face to Face Visit with the patient with greater than 50% spent counseling the patient and coordination of care.
[2022-03-16 09:23] VITALS: BP 124/80
== END 2022-03-16 08:47 | disposition home or self-care (01) ==
LOC: SC 08:46
PROVIDERS: ATTEND Nurse Practitioner Family
DX: G47.33 Obstructive sleep apnea (adult) (pediatric) (principal); E66.9 Obesity, unspecified; Z68.33 Body mass index [BMI] 33.0-33.9, adult
CPT/HCPCS: 99213; G0463; 99212

== ENCOUNTER 2022-06-29 14:45 | Outpatient (CLI) | payer MEDICARE, OTHER ==
[2022-06-29 14:56] LABS: BASOPHILS # (AUTO) 0.1 10^3/uL (0.0-0.1); EOSINOPHILS # (AUTO) 0.2 10^3/uL (0.0-0.7); EOSINOPHILS % (AUTO) 2.3 %; HCT - HEMATOCRIT 42.4 % (42.0-52.0); HGB - HEMOGLOBIN 13.9 g/dL (14.0-18.0); LYMPHOCYTES % (AUTO) 29.1 %; MEAN CORPUSCULAR HEMOGLOBIN 29.1 pg (27.0-31.0); MEAN CORPUSCULAR HGB CONC 32.8 g/dL (32.0-36.0); MEAN CORPUSCULAR VOLUME 88.7 fL (80.0-94.0); MEAN PLATELET VOLUME 9.1 fL (7.4-11.4); MONOCYTES # (AUTO) 0.6 10^3/uL (0.0-1.0); MONOCYTES % (AUTO) 8.1 %; NEUTROPHILS # (AUTO) 4.1 10^3/uL (1.5-6.6); NEUTROPHILS % (AUTO) 59.2 %; PLT - PLATELET COUNT 233 10^3/uL (130-450); RED BLOOD COUNT 4.78 10^6/uL (4.70-6.10); RED CELL DISTRIBUTION WIDTH 13.2 % (12.0-15.0); WHITE BLOOD COUNT 6.9 x10^3/uL (4.8-10.8)
[2022-06-29 15:08] LABS: CREATININE 0.9 mg/dL (0.6-1.2)
== END 2022-06-29 14:46 | disposition home or self-care (01) ==
LOC: LAB 14:45
PROVIDERS: ATTEND Pharmacist
DX: I48.0 Paroxysmal atrial fibrillation (principal)
CPT/HCPCS: 36415; 82565; 85025

== ENCOUNTER 2023-03-23 09:20 | Outpatient (CLI) | payer MEDICARE, OTHER ==
--- NOTE | 2023-03-23 10:01 | Sleep Patient Instructions ---
Sleep Center Visit Summary - Patient Visit Information Reason for Visit: Annual Visit - Patient Instructions Additional Instructions: You will continue with CPAP therapy with pressure set at 6-8 cmH2O. A supply prescription will be updated with your DME. We encourage you to continue to try to lose weight. Please follow up with the sleep care office in 1 year. - Clinic Information Contact: [facility] [address] [place] [address] [email or web address] T: [phone]
--- NOTE | 2023-03-23 10:03 | SLEEP CARE CONSULTATION ---
Information from patient questionnaire entered by Yue Hartman. I have reviewed and concur with the information entered by Yue Hartman. This document represents the service I personally performed and the decisions made by , Cat Arvizu ARNP. History of Present Illness Service Date and Time: 03/23/2023 09 Previous diagnosis: Severe, Obstructive Sleep Apnea-Hypopnea Syndrome AHI: 50.7 Reason for follow up: annual (LASR SEEN 03/2022) Equipment type: CPAP (RESMED 01/2022) Equipment obtained from: [employer] (getting supplies) Mask style: Nasal pillows Backup mask available: Yes Last cushion change: last sunday Prior sleep studies: Yes Year and Where: 2020 - [facility]; 1997 and 2011 Type of Sleep Study: Home sleep study HPI additional information: WILY PILLAI was diagnosed to have severe, AHI 50.7, obstructive sleep apnea- hypopnea syndrome and returned today for CPAP therapy annual follow-up. Sleep Study - Results Type of Sleep Study: Home sleep study Prior sleep studies: Yes Year and Where: 2020 - [facility]; 1997 and 2011 CPAP Compliance Data - Data Reviewed with Patient Average duration of nightly device use: 5 HRS 51 MINS Compliance rate %: 92 (03/21/2022-03/20/2023; 356/365 days used) Current pressure setting (cmH2O): 6-8 Average residual AHI: 0.8 Central apnea: 0.1 Obstructive apnea: 0.4 Average large leak: 0.7 L/min Subjective Missed days of use due to: reports: illness (allergies clog nose and cannot breathe with mask; had Covid in Apr) Patient concerns: reports: condensation in mask/hose (not often). denies: aerophagia, mask discomfort, air blowing in eyes, mask leak noise, nasal congestion, dry mouth, nose, throat, epistaxis Observed to snore while using device: No Current pressure setting perceived as: comfortable On therapy, patient: reports: sleeping better, awakening more refreshed, being more awake and alert during the day, more rested overall. denies: drowsiness w hile driving Initial Moira Sleepiness Scale score: 2 (in 2020) Current Moira Sleepiness Scale score: 5 (03/23/23) Allergies and Home Medications Known drug allergies: Yes (as listed) Drug allergies reviewed: Yes Home medication list reviewed: Yes (no changes) Allergy and home medication list: Allergies bacitracin Allergy (Severe, Verified 03/22/23 13:35) Edema erythromycin base Allergy (Verified 03/22/23 13:35) Edema Review of Systems Review of systems same as previous: Yes (NO CHANGE) Physical Exam Vital signs obtained and entered by: YUE Marc MA Blood Pressure: 136/80 (LEFT ARM) Cuff size: regular Heart Rate: 58 O2 Saturation: 96 Height: 6 ft 3 in Weight: 268 lb 3.2 oz Weight change since last visit: 3 lb gain Body Mass Index: 33.5 BMI Classification: Obese Impression and Plan 1. Obstructive Sleep Apnea-Hypopnea Syndrome, severe, with good treatment compl iance and good apnea control. On CPAP therapy, the patient has better sleep quality and is more rested overall. Patient has significant improvement of their sleep apnea and is satisfied with current CPAP therapy. Patient denies problems with oral dryness, nasal congestion, epistaxis, skin irritation or aerophagia. Patient's apnea severity and rationale for treatment to reduce apnea, improve sleep quality and reduce cardiovascular and cerebrovascular events was reviewed. I also reviewed the benefit of consistent device use of CPAP for hypertension, arrhythmia, diabetes, gastric reflux, anxiety and mood disorder. 2. Obesity, unspecified. Currently patients BMI is 33.5. Obesity increases the risk of apnea, CPAP pressure requirements and overall health risks especially cardiovascular and diabetes. Thus patient is advised to lose weight. * Continue auto CPAP pressure at 6-8 cmH2O * Update supply prescription * Notify me if snoring with mask or feeling that the pressure is too much or too little * Attempt to lose weight * Call this office if any problems using CPAP * Return for follow up in 1 year, or sooner if concerns arise Counseling Topics: Spare mask, Weight loss health impact Prescriptions: Device supplies Follow up with Sleep Care in: 1 year Visit Type: In Office Time Spent with Patient (minutes): 20 Provider Statement: I spent 100% of the Face to Face Visit with the patient with greater than 50% spent counseling the patient and coordination of care.
[2023-03-23 10:12] VITALS: BP 136/80; O2SAT 96
== END 2023-03-23 09:21 | disposition home or self-care (01) ==
LOC: SC 09:20
PROVIDERS: ATTEND Nurse Practitioner Family
DX: G47.33 Obstructive sleep apnea (adult) (pediatric) (principal); E66.9 Obesity, unspecified; Z68.33 Body mass index [BMI] 33.0-33.9, adult
CPT/HCPCS: 99213; G0463; 99212

== ENCOUNTER 2023-07-12 10:24 | Outpatient (CLI) | payer MEDICARE, OTHER | END 2023-07-12 10:25 | disposition home or self-care (01) | LOC: LAB 10:24 | PROVIDERS: ATTEND Physician Assistant Medical | DX: Z12.5 Encounter for screening for malignant neoplasm of prostate (principal) | CPT/HCPCS: 36415; G0103; 84153 ==

== ENCOUNTER 2023-08-14 14:15 | Outpatient (CLI) | payer MEDICARE, OTHER ==
[2023-08-14 14:34] LABS: HCT - HEMATOCRIT 40.9 % (42.0-52.0); HGB - HEMOGLOBIN 13.4 g/dL (14.0-18.0); MEAN CORPUSCULAR HEMOGLOBIN 29.8 pg (27.0-31.0); MEAN CORPUSCULAR HGB CONC 32.8 g/dL (32.0-36.0); MEAN CORPUSCULAR VOLUME 90.9 fL (80.0-94.0); MEAN PLATELET VOLUME 9.1 fL (7.4-11.4); RED BLOOD COUNT 4.5 10^6/uL (4.70-6.10); RED CELL DISTRIBUTION WIDTH 13.3 % (12.0-15.0); WHITE BLOOD COUNT 6.5 x10^3/uL (4.8-10.8)
[2023-08-14 14:47] LABS: CREATININE 0.9 mg/dL (0.6-1.3)
== END 2023-08-14 14:16 | disposition home or self-care (01) ==
LOC: LAB 14:15
PROVIDERS: ATTEND Nurse Practitioner Family
DX: I48.0 Paroxysmal atrial fibrillation (principal)
CPT/HCPCS: 36415; 82565; 85027